=== PATIENT | male | born 1995 | race Caucasian/White ===

== ENCOUNTER 2019-06-12 12:01 | Day surgery (SDC) | payer SELFPAY ==
[~2019-06-12] VITALS: Ht 182.9 cm; Wt 81.8 kg
[2019-06-12 13:13] VITALS: BP 114/82; PULSE 77; TEMP 98.2
[2019-06-12] MEDS ORDERED: NORCO 325 MG-51 TAB PO (13:24)
[2019-06-12 14:31] VITALS: BP 124/56; PULSE 84
--- NOTE | 2019-06-12 14:31 | NUR ---
Patient returns to room 1 per cart from surgery accompanied by Jostin Blake CRNA and Filemon ESTEBAN. Patient arouses to verbal stimuli. Shivering and warm blankets on. Foot of cart elevated and plaster splint in place. Toes warm and pink on the right foot. Unable to wiggle toes or move the right leg. Temp 96.7. IV fluids infusing and siderails up x2. Call light in reach. Family in room. Denies pain due to block placed pre-op.
[2019-06-12 14:46] VITALS: BP 111/52; PULSE 60
--- NOTE | 2019-06-12 14:46 | NUR ---
Becoming more awake now and talking. No further shivering. Foot of cart remains elevated and splint dry and intact.
[2019-06-12 15:01] VITALS: BP 118/79; PULSE 63
--- NOTE | 2019-06-12 15:01 | NUR ---
Patient is drinking Pepsi and sipping on water. Denies nausea. States that the right leg remains numb. Family in room.
[2019-06-12 15:16] VITALS: BP 128/72; PULSE 63
--- NOTE | 2019-06-12 15:16 | NUR ---
Continues to rest without complaints of pain or nausea.
[2019-06-12] MEDS ORDERED: PERCOCET 325 MG1 TA2 PO (15:23)
[2019-06-12] MEDS ORDERED: ASPIRIN 32325 MG/TA1 PO (15:24)
[2019-06-12] MEDS ORDERED: COLACE 100100 MG/CAP PO (15:25)
[2019-06-12] MEDS ORDERED: MOBIC15 MG PO (15:25)
[2019-06-12] MEDS ORDERED: ZOFRAN 4MG T4 MG/TAB PO (15:26)
[2019-06-12 15:31] VITALS: BP 132/85; PULSE 65
--- NOTE | 2019-06-12 15:31 | NUR ---
Eating muffin and drinking water. Continues to deny pain or nausea. Right leg remains numb.
--- NOTE | 2019-06-12 16:00 | NUR ---
IV converted to INT. Foot of cart remains elevated.
--- NOTE | 2019-06-12 16:15 | NUR ---
Patient assisted up to the bathroom with use of crutches and is non weight bearing on the right leg. Denies pain and states that the leg remains numb.
--- NOTE | 2019-06-12 16:20 | NUR ---
Patient was able to urinate and returns to room. Given dismissal instructions and voices understanding of these. Provided scripts for Percocet, Zofran, Aspirin, Colace, and Mobic. Provided dismissal instructions from Dr. Veronica's office. Reinforced need to keep the splint dry and keep the right leg elevated above the heart for pain and swelling. Provided office number for questions and concerns.
--- NOTE | 2019-06-12 16:31 | NUR ---
Patient assisted into wheelchair and taken to the front door and assisted into vehicle driven by father and dismissed to home with instructions in hand. Taken to the front door by this RN.
== END 2019-06-12 16:31 | disposition home or self-care (01) ==
LOC: SDCO 12:01
DX: S93.324A Dislocation of tarsometatarsal joint of right foot, initial encounter (principal); F17.210 Nicotine dependence, cigarettes, uncomplicated; Z82.62 Family history of osteoporosis; Z82.61 Family history of arthritis
CPT/HCPCS: J1100; J1885; J2250; J2405; J2704; J2795; J3010; J7120